=== PATIENT | female | born 1945 | race African-American/Black ===

== ENCOUNTER 2016-05-22 05:46 | Emergency (ER) | payer BC ==
[2016-05-22 06:06] LABS: Bilirubin Negative (Negative); Blood, Urine Negative (Negative); Clarity Clear (Clear); Glucose, Urine (Dipstick) Negative (Negative); Leukocyte Negative (Negative); Nitrite Negative (Negative); Protein, Urine (Dipstick) Negative (Neg-Trace); Specific Gravity, Urine 1.015 (1.005-1.030); Urobilinogen 0.2 mg/dL (0.2-1.0)
[2016-05-22 06:42] LABS: Hemoglobin 13.1 g/dL (12.0-16.0); Manual Diff?? NO; Mean Corpuscular HGB CONC 31.3 g/dL (32.0-36.0); Mean Corpuscular Hemoglobin 23.4 pg (27.0-31.0); Mean Corpuscular Volume 74.9 fL (81.0-99.0); Mean Platelet Volume 7.2 fL (7.4-10.4); Platelet Count 250 thou/uL (130-400); RBC Distribution Width 13.4 % (11.5-14.5); Red Blood Cell (RBC) Count 5.58 mill/uL (4.20-5.40); White Blood Cell (WBC) Count 9.6 thou/uL (4.8-10.8)
[2016-05-22 06:43] LABS: #Basophils 0.1 thou/uL (0.0-0.2); #Eosinphils 0.3 thou/uL (0.0-0.7); #Lymphocytes 2.8 thou/uL (1.20-3.40); #Monocytes 0.5 thou/uL (0.11-0.59); #Neutrophils 5.8 thou/uL (1.40-6.50); %Basophils 1.5 % (0.0-1.0); %Eosinophils 3.1 % (0.0-10.0); %Lymphocytes 28.9 % (21.0-51.0); %Monocytes 5.6 % (0.0-10.0); %Neutrophils 60.9 % (42.0-75.0)
[2016-05-22 06:48] LABS: Hypochromia MODERATE=16-30 cells (100X) (0-5/hpf); Microcytosis MODERATE=15-30 cells (100X) (0-5/hpf)
[2016-05-22 06:49] LABS: PLT Morphology Comment Appears Adequate
[2016-05-22 06:50] LABS: ALT (SGPT) Less than 6 U/L (0-55); AST (SGOT) 10 U/L (5-34); Albumin 3.8 g/dL (3.4-4.8); Alkaline Phosphatase 74 U/L (40-150); Anion Gap 14 mmol/L (10-20); BUN (Urea Nitrogen) 16 mg/dL (9.8-20.1); Bilirubin, Total 0.3 mg/dL (0.2-1.2); Calc. Creatinine Clearance 0 mL/min (70-130); Calcium 8.9 mg/dL (7.8-10.44); Carbon Dioxide 26 mmol/L (23-31); Chloride 103 mmol/L (98-107); Estimated GFR-MDRD 84; Globulin 3.6 g/dL (2.4-3.5); Glucose 117 mg/dL (83-110); Lipase 25 U/L (8-78); Protein, Total 7.4 g/dL (5.8-8.1); Sodium 139 mmol/L (136-145)
--- NOTE | 2016-05-22 08:05 | RAD ---
ACUTE ABDOMINAL SERIES: Date: 05/22/16 PROVIDED CLINICAL HISTORY: Abdominal pain. FINDINGS: Comparison with 08/05/14. Cardiac and mediastinal silhouette is unchanged in appearance. No focal consolidation, pleural fluid , or pneumothorax apparent. Supine and upright abdominal radiographs demonstrate a nonspecific bowel gas pattern. There is no ev idence for pneumoperitoneum. No radiographically apparent urinary tract calculi. IMPRESSION: No evidence for an acute process. POS: [facility]
== END 2016-05-22 07:14 | disposition home or self-care (01) ==
LOC: NAV ERS 05:46
DX: R10.31 Right lower quadrant pain (principal); D50.9 Iron deficiency anemia, unspecified; J45.909 Unspecified asthma, uncomplicated; E78.5 Hyperlipidemia, unspecified; E78.00 Pure hypercholesterolemia, unspecified; E03.9 Hypothyroidism, unspecified; I10 Essential (primary) hypertension; Z79.899 Other long term (current) drug therapy
CPT/HCPCS: 74022; 80053; 81003; 83690; 85025

== ENCOUNTER 2016-09-04 09:49 | Emergency (ER) | payer BC | END 2016-09-04 10:33 | disposition home or self-care (01) | LOC: NAV ERS 09:49 | DX: M25.571 Pain in right ankle and joints of right foot (principal); J45.909 Unspecified asthma, uncomplicated; E78.5 Hyperlipidemia, unspecified; I10 Essential (primary) hypertension; Z79.891 Long term (current) use of opiate analgesic; Z79.899 Other long term (current) drug therapy; Z96.651 Presence of right artificial knee joint | CPT/HCPCS: 99283 ==

== ENCOUNTER 2017-06-04 04:39 | Emergency (ER) | payer BC ==
[2017-06-04] MEDS ORDERED: Ketorolac Tromethamine 30 MG/ML VIAL ONE (05:06)
--- NOTE | 2017-06-04 09:08 | RAD ---
LEFT WRIST 3 VIEWS: Date: 06/04/17 HISTORY: Left wrist pain. FINDINGS: Scaphoid waist and ulnar styloid are intact. No acute fracture, dislocation, or aggressive osseous er osions. Joint space narrowing, osteophytosis, and subchondral sclerosis are most pronounced at the fi rst carpometacarpal joint. IMPRESSION: Osteoarthritis left first carpometacarpal joint. No acute osseous abnormalities are demonstrated. POS: [facility]
--- NOTE | 2017-06-04 09:11 | RAD ---
LEFT SHOULDER 3 VIEWS: Date: 06/04/17 HISTORY: Left shoulder pain. FINDINGS: Acromioclavicular and glenohumeral alignment are maintained. Mild osteoarthritic changes of the acrom ioclavicular joint are apparent. There is prominent joint space narrowing, osteophytosis, and subchon dral sclerosis involving the glenohumeral joint with irregularity of the articular surfaces. An irreg ular calcification overlies the region of the labrum and may represent ossification, with possible fr agmentation. No acute fracture, dislocation, or aggressive osseous erosions. IMPRESSION: Prominent osteoarthritic changes left shoulder with probable intracapsular loose body. POS: [facility]
== END 2017-06-04 05:35 | disposition home or self-care (01) ==
LOC: NAV ERS 04:39
DX: M19.012 Primary osteoarthritis, left shoulder (principal); M19.042 Primary osteoarthritis, left hand; M19.032 Primary osteoarthritis, left wrist; J45.909 Unspecified asthma, uncomplicated; E78.5 Hyperlipidemia, unspecified; E03.9 Hypothyroidism, unspecified; I10 Essential (primary) hypertension; Z79.899 Other long term (current) drug therapy; Z79.82 Long term (current) use of aspirin
CPT/HCPCS: 96372; J1885

== ENCOUNTER 2018-01-28 12:25 | Emergency (ER) | payer BC ==
[2018-01-28] MEDS ORDERED: methylPREDNISolone Acetate 40 mg/ml Vial ONE (13:44)
--- NOTE | 2018-01-28 14:06 | RAD ---
RADIOGRAPH CHEST 2 VIEWS: HISTORY: 72-year-old female with cough. FINDINGS: The thoracic aorta is tortuous and ectatic. There is no evidence of air space density, pneumothorax, or pulmonary edema. There is no cardiomegaly or pleural effusion. IMPRESSION: 1. No acute cardiopulmonary findings. 2. Ectasia of thoracic aorta. waldo [] POS: [facility]
== END 2018-01-28 14:00 | disposition home or self-care (01) ==
LOC: NAV ERS 12:25
DX: J20.9 Acute bronchitis, unspecified (principal); R19.7 Diarrhea, unspecified; E78.5 Hyperlipidemia, unspecified; E03.9 Hypothyroidism, unspecified; I10 Essential (primary) hypertension; Z79.891 Long term (current) use of opiate analgesic; Z79.82 Long term (current) use of aspirin; Z79.899 Other long term (current) drug therapy
CPT/HCPCS: 71046; 96372; J1030

== ENCOUNTER 2018-09-16 13:26 | Emergency (ER) | payer BC | END 2018-09-16 14:31 | disposition home or self-care (01) | LOC: NAV ERS 13:26 | DX: M25.512 Pain in left shoulder (principal); M25.562 Pain in left knee; J45.909 Unspecified asthma, uncomplicated; E11.9 Type 2 diabetes mellitus without complications; E03.9 Hypothyroidism, unspecified; E78.5 Hyperlipidemia, unspecified; I10 Essential (primary) hypertension; M19.90 Unspecified osteoarthritis, unspecified site; F20.9 Schizophrenia, unspecified; Z79.899 Other long term (current) drug therapy; Z79.891 Long term (current) use of opiate analgesic; Z79.82 Long term (current) use of aspirin | CPT/HCPCS: 99283 ==

== ENCOUNTER 2019-06-27 19:26 | Emergency (ER) | payer BC ==
[2019-06-27] MEDS ORDERED: Dexamethasone 20 MG/5 ML VIAL ONE (19:59)
[2019-06-27] MEDS ORDERED: Ketorolac Tromethamine 30 MG/ML VIAL ONE (19:59)
== END 2019-06-27 20:35 | disposition home or self-care (01) ==
LOC: NAV ERS 19:26
DX: M19.012 Primary osteoarthritis, left shoulder (principal); M19.011 Primary osteoarthritis, right shoulder; M19.032 Primary osteoarthritis, left wrist; I10 Essential (primary) hypertension; E03.9 Hypothyroidism, unspecified; E78.5 Hyperlipidemia, unspecified; E78.00 Pure hypercholesterolemia, unspecified; J45.909 Unspecified asthma, uncomplicated; M19.90 Unspecified osteoarthritis, unspecified site; F20.9 Schizophrenia, unspecified; Z79.82 Long term (current) use of aspirin; Z79.899 Other long term (current) drug therapy
CPT/HCPCS: 96372; 99283; J1100; J1885

== ENCOUNTER 2020-09-16 15:54 | Emergency (ER) | payer BC ==
[2020-09-16 16:56] LABS: Bilirubin Large (Negative); Blood, Urine Negative (Negative); Clarity Clear (Clear); Glucose, Urine (Dipstick) 100 mg/dL (Negative); Ketone, Urine Trace mg/dL (Negative); Leukocyte Negative (Negative); Nitrite Negative (Negative); Protein, Urine (Dipstick) Negative (Neg-Trace)
== END 2020-09-16 17:36 | disposition home or self-care (01) ==
LOC: NAV ERS 15:54
DX: J20.9 Acute bronchitis, unspecified (principal); R32 Unspecified urinary incontinence; J45.909 Unspecified asthma, uncomplicated; E03.9 Hypothyroidism, unspecified; I10 Essential (primary) hypertension; M19.90 Unspecified osteoarthritis, unspecified site; E78.5 Hyperlipidemia, unspecified; Z79.899 Other long term (current) drug therapy; Z79.82 Long term (current) use of aspirin
CPT/HCPCS: 71046; 81003

== ENCOUNTER 2021-01-18 11:13 | Emergency (ER) | payer BC ==
[2021-01-18 12:16] LABS: #Basophils 0.1 thou/uL (0.0-0.2); #Eosinphils 0.3 thou/uL (0.0-0.7); #Lymphocytes 1.5 thou/uL (1.20-3.40); #Monocytes 0.7 thou/uL (0.11-0.59); #Neutrophils 5.9 thou/uL (1.40-6.50); %Basophils 0.9 % (0.0-1.0); %Eosinophils 3.9 % (0.0-10.0); %Lymphocytes 17.6 % (21.0-51.0); %Neutrophils 69.6 % (42.0-75.0); Hemoglobin 12.2 g/dL (12.0-16.0); Mean Corpuscular HGB CONC 29.8 g/dL (32.0-36.0); Mean Corpuscular Volume 77.2 fL (78.0-98.0); Mean Platelet Volume 7.5 fL (7.4-10.4); Platelet Count 310 thou/uL (130-400); RBC Distribution Width 13.7 % (11.5-14.5); Red Blood Cell (RBC) Count 5.31 mill/uL (4.20-5.40); White Blood Cell (WBC) Count 8.4 thou/uL (4.8-10.8)
[2021-01-18 12:29] LABS: ALT (SGPT) Less than 6 U/L (8-55); AST (SGOT) 10 U/L (5-34); Albumin 3.5 g/dL (3.4-4.8); Alkaline Phosphatase 78 U/L (40-110); Anion Gap 12 mmol/L (10-20); BUN (Urea Nitrogen) 11 mg/dL (9.8-20.1); Bilirubin, Total 0.3 mg/dL (0.2-1.2); Calc. Creatinine Clearance 0 mL/min (70-130); Calcium 9.3 mg/dL (7.8-10.44); Carbon Dioxide 30 mmol/L (23-31); Chloride 99 mmol/L (98-107); Globulin 4.3 g/dL (2.4-3.5); Glucose 156 mg/dL (83-110); Potassium 3.5 mmol/L (3.5-5.1); Protein, Total 7.8 g/dL (5.8-8.1); Sodium 137 mmol/L (136-145)
== END 2021-01-18 13:10 | disposition home or self-care (01) ==
LOC: NAV ERS 11:13
DX: J01.90 Acute sinusitis, unspecified (principal); R42 Dizziness and giddiness; I10 Essential (primary) hypertension; J45.909 Unspecified asthma, uncomplicated; E78.5 Hyperlipidemia, unspecified; E03.9 Hypothyroidism, unspecified; Z79.82 Long term (current) use of aspirin; Z79.899 Other long term (current) drug therapy
CPT/HCPCS: 70450; 80053; 84484; 85025; 93005

== ENCOUNTER 2021-02-06 16:17 | Emergency (ER) | payer BC | END 2021-02-06 16:57 | disposition home or self-care (01) | LOC: NAV ERS 16:17 | DX: J31.0 Chronic rhinitis (principal); E78.5 Hyperlipidemia, unspecified; E78.00 Pure hypercholesterolemia, unspecified; E03.9 Hypothyroidism, unspecified; I10 Essential (primary) hypertension; M19.90 Unspecified osteoarthritis, unspecified site; Z79.899 Other long term (current) drug therapy; Z79.82 Long term (current) use of aspirin; J45.909 Unspecified asthma, uncomplicated | CPT/HCPCS: 99283 ==

== ENCOUNTER 2021-10-04 08:40 | Emergency (ER) | payer BC ==
[2021-10-04] MEDS ORDERED: Ketorolac Tromethamine 30 MG/ML VIAL ONE (09:55)
== END 2021-10-04 10:00 | disposition home or self-care (01) ==
LOC: NAV ERS 08:40
DX: J30.9 Allergic rhinitis, unspecified (principal); M19.09 Primary osteoarthritis, other specified site; M19.042 Primary osteoarthritis, left hand; M19.041 Primary osteoarthritis, right hand; E78.5 Hyperlipidemia, unspecified; E03.9 Hypothyroidism, unspecified; I10 Essential (primary) hypertension
CPT/HCPCS: 96372; 99283; J1885

== ENCOUNTER 2022-01-03 14:34 | Emergency (ER) | payer BC ==
[2022-01-03] MEDS ORDERED: Loratadine 10 MG TAB PO SCH (15:15)
[2022-01-03] MEDS ORDERED: Loratadine 10 MG TAB ONE (15:24)
== END 2022-01-03 15:54 | disposition home or self-care (01) ==
LOC: NAV ERS 14:34
DX: M47.812 Spondylosis without myelopathy or radiculopathy, cervical region (principal); R09.82 Postnasal drip; E78.5 Hyperlipidemia, unspecified; E78.00 Pure hypercholesterolemia, unspecified; E03.9 Hypothyroidism, unspecified; I10 Essential (primary) hypertension; Z79.899 Other long term (current) drug therapy
CPT/HCPCS: 99283

== ENCOUNTER 2022-01-29 09:15 | Emergency (ER) | payer BC | END 2022-01-29 10:15 | disposition home or self-care (01) | LOC: NAV ERS 09:15 | DX: S46.212A Strain of muscle, fascia and tendon of other parts of biceps, left arm, initial encounter (principal); M54.50 Low back pain, unspecified; G89.29 Other chronic pain; M47.9 Spondylosis, unspecified; Z71.89 Other specified counseling; E78.00 Pure hypercholesterolemia, unspecified; E03.9 Hypothyroidism, unspecified; I10 Essential (primary) hypertension; Z79.899 Other long term (current) drug therapy; X58.XXXA Exposure to other specified factors, initial encounter | CPT/HCPCS: 99283 ==

== ENCOUNTER 2023-02-13 11:11 | Emergency (ER) | payer BC ==
[2023-02-13 12:13] LABS: ALT (SGPT) 7 U/L (8-55); AST (SGOT) 15 U/L (5-34); Albumin 3.8 g/dL (3.4-4.8); Alkaline Phosphatase 82 U/L (40-110); Anion Gap 16 mmol/L (10-20); BUN (Urea Nitrogen) 11 mg/dL (9.8-20.1); Bilirubin, Total 0.3 mg/dL (0.2-1.2); CK (CPK) 118 U/L (29-168); Calc. Creatinine Clearance 0 mL/min (70-130); Calcium 9.1 mg/dL (7.8-10.44); Carbon Dioxide 27 mmol/L (23-31); Chloride 97 mmol/L (98-107); Estimated GFR 65; Globulin 4.2 g/dL (2.4-3.5); Glucose 116 mg/dL (83-110); Potassium 3.4 mmol/L (3.5-5.1); Sodium 137 mmol/L (136-145)
[2023-02-13 12:28] LABS: Hemoglobin 12.9 g/dL (12.0-16.0); Lymphocytes 10 % (21-51); MDiff Complete? YES; Mean Corpuscular HGB CONC 31.5 g/dL (32.0-36.0); Mean Corpuscular Hemoglobin 23.8 pg (27.0-31.0); Mean Corpuscular Volume 75.5 fl (78.0-98.0); Mean Platelet Volume 7.4 fL (7.4-10.4); Monocytes 9 % (0-10); Neutrophil 78 % (42-75); Platelet Adequacy Comment Appears Adequate; Platelet Count 270 10x3/uL (130-400); RBC Distribution Width 13.1 % (11.5-14.5); Red Blood Cell (RBC) Count 5.43 mill/uL (4.20-5.40); White Blood Cell (WBC) Count 5.2 10x3/uL (4.8-10.8)
[2023-02-13] MEDS ORDERED: Ketorolac Tromethamine 30 MG/ML VIAL ONE (12:34)
[2023-02-13 13:14] LABS: Bilirubin Large (Negative); Blood, Urine Negative (Negative); Glucose, Urine (Dipstick) Negative (Negative); Ketone, Urine Negative (Negative); Leukocyte Negative (Negative); Nitrite Negative (Negative); Protein, Urine (Dipstick) 100 mg/dL (Neg-Trace); Specific Gravity, Urine 1.025 (1.005-1.030)
[2023-02-13 13:15] LABS: Clarity Hazy (Clear)
[2023-02-13 13:20] LABS: CAUTI Indications for Culture Fever or rigors; RBC/HPF None Seen HPF (0-3); Squamous Epithelial 0-3 HPF (0-3); WBC/HPF 0-3 HPF (0-3)
[2023-02-13 13:22] LABS: Urine Culture Reflex No No
== END 2023-02-13 14:02 | disposition home or self-care (01) ==
LOC: NAV ERS 11:11
DX: J10.1 Influenza due to other identified influenza virus with other respiratory manifestations (principal); I10 Essential (primary) hypertension; E78.00 Pure hypercholesterolemia, unspecified; E03.9 Hypothyroidism, unspecified; Z79.899 Other long term (current) drug therapy
CPT/HCPCS: 51701; 70450; 71045; 72125; 80053; 81001; 82550; 83605; 83880; 85025; 87040; 87804; 87807; 96374; J1885

== ENCOUNTER 2023-05-27 14:28 | Emergency (ER) | payer BC ==
[2023-05-27] MEDS ORDERED: Aspirin Chewable 81 MG TAB ONE (14:48)
[2023-05-27 15:16] LABS: #Basophils 0.1 thou/uL (0.0-0.2); #Eosinphils 0.3 thou/uL (0.0-0.7); #Monocytes 0.6 thou/uL (0.11-0.59); #Neutrophils 4.8 thou/uL (1.40-6.50); %Basophils 0.8 % (0.0-1.0); %Eosinophils 4.1 % (0.0-10.0); Hematocrit 38.6 % (36.0-47.0); Hemoglobin 11.7 g/dL (12.0-16.0); Mean Corpuscular HGB CONC 30.4 g/dL (32.0-36.0); Mean Corpuscular Hemoglobin 23.2 pg (27.0-31.0); Mean Corpuscular Volume 76.5 fl (78.0-98.0); Mean Platelet Volume 6.8 fL (7.4-10.4); Platelet Count 323 10x3/uL (130-400); RBC Distribution Width 13.9 % (11.5-14.5); Red Blood Cell (RBC) Count 5.04 mill/uL (4.20-5.40); White Blood Cell (WBC) Count 7.8 10x3/uL (4.8-10.8)
[2023-05-27 15:19] LABS: ALT (SGPT) 7 U/L (8-55); AST (SGOT) 10 U/L (5-34); Albumin 3.6 g/dL (3.4-4.8); Alkaline Phosphatase 79 U/L (40-110); Anion Gap 11 mmol/L (10-20); BUN (Urea Nitrogen) 13 mg/dL (9.8-20.1); Bilirubin, Total 0.3 mg/dL (0.2-1.2); Calc. Creatinine Clearance 0 mL/min (70-130); Carbon Dioxide 29 mmol/L (23-31); Chloride 99 mmol/L (98-107); Estimated GFR 75; Globulin 3.9 g/dL (2.4-3.5); Glucose 107 mg/dL (83-110); Potassium 3.8 mmol/L (3.5-5.1); Protein, Total 7.5 g/dL (5.8-8.1); Sodium 135 mmol/L (136-145)
[2023-05-27 15:20] LABS: Troponin I Less than 0.010 ng/mL (< 0.028)
== END 2023-05-27 16:17 | disposition home or self-care (01) ==
LOC: NAV ERS 14:28
DX: R07.9 Chest pain, unspecified (principal); M79.10 Myalgia, unspecified site; E78.00 Pure hypercholesterolemia, unspecified; E03.9 Hypothyroidism, unspecified; I10 Essential (primary) hypertension; Z79.899 Other long term (current) drug therapy
CPT/HCPCS: 71046; 72100; 80053; 83880; 84484; 85025; 93005; 94760

== ENCOUNTER 2023-11-06 14:27 | Emergency (ER) | payer MEDICARE, SELFPAY ==
[2023-11-06] MEDS ORDERED: Ketorolac Tromethamine 30 MG (1 mL) VIAL ONE (14:54)
[2023-11-06] MEDS ORDERED: Lidocaine 4% Patch ONE (14:55)
== END 2023-11-06 15:22 | disposition home or self-care (01) ==
LOC: NAV ERS 14:27
DX: S46.811A Strain of other muscles, fascia and tendons at shoulder and upper arm level, right arm, initial encounter (principal); S46.812A Strain of other muscles, fascia and tendons at shoulder and upper arm level, left arm, initial encounter; E03.9 Hypothyroidism, unspecified; I10 Essential (primary) hypertension; Z79.899 Other long term (current) drug therapy; X58.XXXA Exposure to other specified factors, initial encounter
CPT/HCPCS: 96372; 99283; J1885